=== PATIENT | female | born 1970 | race Two or more races ===

== ENCOUNTER 2018-04-16 21:20 | Emergency (ER) | payer SELFPAY, OTHER ==
[2018-04-16] MEDS: traMADol 50 MG TAB PO (22:00)
[2018-04-16] MEDS: morphine 4 MG/ML VIAL IV (23:43)
[2018-04-16] MEDS: morphine 4 MG/ML VIAL IM (23:51)
[2018-04-16 23:56] LABS: ADD MAN DIFF? NO
[2018-04-16 23:57] LABS: BASOPHILS % 0.4 % (0.0-2.0); EOSINOPHILS # 0.1 10^3/ul (0.0-0.5); EOSINOPHILS % 1.4 % (0.0-7.0); HEMATOCRIT 41.9 % (37.0-47.0); HEMOGLOBIN 13.3 g/dl (12.0-16.0); LYMPHOCYTES # 3.2 10^3/ul (0.8-2.9); LYMPHOCYTES % 43.9 % (15.0-51.0); MEAN CORPUSCULAR HEMOGLOBIN 26.4 pg (29.0-33.0); MEAN CORPUSCULAR HGB CONC 31.7 g/dl (32.0-37.0); MEAN CORPUSCULAR VOLUME 83.1 fl (82.0-101.0); MEAN PLATELET VOLUME 10.6 fl (7.4-10.4); MONOCYTE # 0.6 10^3/ul (0.3-0.9); MONOCYTES % 8.7 % (0.0-11.0); NEUTROPHIL # 3.3 10^3/ul (1.6-7.5); NEUTROPHILS % 45.5 % (39.0-77.0); PLATELET COUNT 276 10^3/UL (140-415); RED BLOOD COUNT 5.04 10^6/ul (4.20-5.40); RED CELL DISTRIBUTION WIDTH 13.2 % (11.5-14.5)
[2018-04-16 23:57] LABS: WHITE BLOOD COUNT 7.3 10^3/ul (4.8-10.8)
[2018-04-17 00:16] LABS: INR 0.98; PROTIME 13.1 Sec (11.9-14.9)
[2018-04-17 00:17] LABS: PARTIAL THROMBOPLASTIN TIME 23.3 Sec (23.0-35.0)
[2018-04-17 00:24] LABS: ALANINE AMINOTRANSFERASE 101 IU/L (13-69); ALBUMIN 4.1 g/dl (3.3-4.9); ALBUMIN/GLOBULIN RATIO 1.36; ALKALINE PHOSPHATASE 180 IU/L (42-121); ANION GAP 13 (5-13); ASPARTATE AMINO TRANSFERASE 46 IU/L (15-46); BILIRUBIN,INDIRECT 0.2 mg/dl (0-1.1); BILIRUBIN,TOTAL 0.2 mg/dl (0.2-1.3); BLOOD UREA NITROGEN 16 mg/dl (7-20); CALCIUM 9.3 mg/dl (8.4-10.2); CARBON DIOXIDE 27 mmol/L (21-31); CHLORIDE 98 mmol/L (97-110); CREATINE KINASE 46 IU/L (23-200); CREATININE 0.55 mg/dl (0.44-1.00); Estimated GFR > 60 mL/min (>60); GLUCOSE 389 mg/dl (70-220); POTASSIUM 4.6 mmol/L (3.5-5.1); SODIUM 138 mmol/L (135-144); TOTAL PROTEIN 7.1 g/dl (6.1-8.1)
[2018-04-17 00:34] LABS: CK INDEX 0.6; CK-MB 0.26 ng/ml (0.0-2.4); TROPONIN-I < 0.012 ng/ml (0.000-0.120)
[2018-04-17] MEDS: SOD CHLORIDE 0.9% 1,000 ML IV (01:13)
[2018-04-17] MEDS: IOHEXOL 300MG/ML 150 ML BTL (01:36)
[2018-04-17] MEDS: SOD CHLORIDE 0.9% 100 ML (01:36)
== END 2018-04-17 03:15 | disposition home or self-care (01) ==
LOC: FTE 04-17 03:15
DX: M79.605 Pain in left leg (principal)
CPT/HCPCS: 73562; 73700; 80053; 81025; 82550; 82553; 82962; 84484; 85025; 85610; 85730; 93970; 96374; 99285-25